=== PATIENT | female | born 1965 | race African-American/Black ===

== ENCOUNTER 2022-08-22 17:22 | Emergency (ER) | payer SELFPAY ==
[2022-08-22 17:28] VITALS: BP 151/89; PULSE 89; RESP 18; TEMP 98.1; BMI 25.7
[2022-08-22] MEDS ORDERED: LIDOCAINE 5% TOPICAL PATCH TP ONE ×2 (18:30→20:14)
[2022-08-22] MEDS ORDERED: KETOROLAC TROMETHAMINE 15 MG/ML VIAL IVPUSH ONE (18:37)
[2022-08-22] MEDS ORDERED: LIDOCAINE 5% TOPICAL PATCH ONE ×2 (19:54→20:21)
[2022-08-22] MEDS ORDERED: KETOROLAC TROMETHAMINE 15 MG/ML VIAL ONE (19:54)
[2022-08-22 21:01] LABS: POTASSIUM 4.5 mmol/L (3.5-5.1)
[2022-08-22 21:03] LABS: CALCIUM 9.5 mg/dL (8.5-10.1)
[2022-08-22 21:04] LABS: ALBUMIN 3.5 g/dl (3.4-5.0); BLOOD UREA NITROGEN 11.4 mg/dL (7-18)
[2022-08-22 21:07] LABS: CREATININE 1.5 mg/dL (0.55-1.3)
[2022-08-22 21:08] LABS: BILIRUBIN,TOTAL 0.2 mg/dL (0.2-1); TOT PROT 7.8 g/dl (6.4-8.2)
[2022-08-22 21:57] LABS: BASO % 0.5 % (0-2.0); EOS % 1.1 % (0-4.5); HEMATOCRIT 40.5 % (32.4-45.2); HEMOGLOBIN 13.5 GM/dL (10.7-15.3); LYMPH % 44.2 % (8-40); MCH 29.5 pg (25.7-33.7); MCHC 33.4 g/dl (32.0-36.0); MEAN CELL VOLUME 88.4 fl (80-96); MEAN PLT VOLUME 9.4 fl (7.5-11.1); NEUT % 48.2 % (42.8-82.8); PLATELET COUNT 264 10^3/uL (134-434); RBC 4.59 M/mm3 (3.60-5.2); RDW 12.6 % (11.6-15.6); WHITE BLOOD COUNT 7.4 K/mm3 (4.0-10.0)
[2022-08-22] MEDS ORDERED: LIDOCAINE PATCH REMOVAL MC ONE ×2 (22:00)
== END 2022-08-22 23:00 | disposition home or self-care (01) ==
LOC: JER 17:22
PROC: 3E033NZ Introduction of Analgesics, Hypnotics, Sedatives into Peripheral Vein, Percutaneous Approach (ICD-10-PCS; principal; 2022-08-22)
DX: M54.6 Pain in thoracic spine (principal); R07.89 Other chest pain
CPT/HCPCS: 0241U-QW; 71046-TC-FY; 80053; 82550; 82553; 83735; 84484; 85025; 85379; 93005; 93010; 99285-25